=== PATIENT | male | born 1985 | race Caucasian/White ===

== ENCOUNTER 2017-04-28 23:38 | Emergency (ER) | payer OTHER ==
[~2017-04-28] VITALS: Ht 170.2 cm; Wt 77.1 kg
[2017-04-28 23:52] VITALS: BP_SYST 116
--- NOTE | 2017-04-29 | NUR ---
Patient to [facility] for evaluation. Side rails up. Report given to CONNER Daniel
--- NOTE | 2017-04-29 00:04 | NUR ---
Dr. Sheikh at bedside examining patient.
--- NOTE | 2017-04-29 00:06 | NUR ---
Pt AOx4, ambulatory, presents to ED with complaint of lower back pain and muscle spasm. Pt states he has "5 slipped disks and is chronic". Pain 5/10 after taking Ibuprofen. Pt is on PT therapy x3 week. No acute distress noted. Will continue to monitor.
[2017-04-29] MEDS ORDERED: KETOROLAC TROMETHAMINE 60 MG/2 ML VIAL IM ONE (00:15)
[2017-04-29 00:20] VITALS: BP_SYST 117
--- NOTE | 2017-04-29 00:20 | NUR ---
Patient given written and verbal discharge instructions and verbalizes understanding. ER MD discussed with patient the results and treatment provided. Patient in stable condition. ID arm band removed. Rx of Flexeril, Ativan, Tylenol with Codeine No.3 given. Patient educated on pain management and to follow up with PMD. Pain Scale 2/10 tolerable to patient. Opportunity for questions provided and answered.
== END 2017-04-29 00:20 | disposition home or self-care (01) ==
LOC: SED 23:38
DX: G89.29 Other chronic pain (principal); M54.5 Low back pain
CPT/HCPCS: 96372; 99283; J1885